=== PATIENT | male | born 1985 | race Caucasian/White ===

== ENCOUNTER 2018-07-17 19:40 | Emergency (ER) | payer OTHER ==
[~2018-07-17] VITALS: Ht 175.3 cm; Wt 87.1 kg
[2018-07-17 19:49] VITALS: BP 152/102
--- NOTE | 2018-07-17 21:20 | NUR ---
PT BIB SELF FOR CHEST TIGHTNESS X1 MONTH. PT REPORTS CHEST TIGHTNESS THAT RADIATES TO L JAW AND IS TINGLING. PT DENIES PAIN AT THIS TIME. PT REPORTS BEING UNDER STRESS WAITING FOR RESULTS OF EXAM. HEART RRR, CAP REFIL <3 SEC, NO EDEMA PRESENT, RADIAL PULSE EQUAL 2+. VSS. ER MD TO SEE PT. WILL CONTINUE TO MONITOR.
--- NOTE | 2018-07-17 21:48 | NUR ---
PT AMBULATED TO RESTROOM
[2018-07-17 22:54] VITALS: BP 129/88
--- NOTE | 2018-07-17 22:54 | NUR ---
Patient discharged with v/s stable. Written and verbal after care instructions given and explained. Patient alert, oriented and verbalized understanding of instructions. Ambulatory with steady gait. All questions addressed prior to discharge. ID band removed. Patient advised to follow up with PMD. Opportunity to ask questions provided and answered.
== END 2018-07-17 22:58 | disposition home or self-care (01) ==
LOC: MED 19:40
DX: F43.9 Reaction to severe stress, unspecified (principal)
CPT/HCPCS: 93005; 99283

== ENCOUNTER 2018-07-23 03:05 | Emergency (ER) | payer OTHER ==
[~2018-07-23] VITALS: Ht 172.7 cm; Wt 86.2 kg
[2018-07-23 03:10] VITALS: BP 149/99
--- NOTE | 2018-07-23 03:15 | NUR ---
EKG COMPLETED IN TRIAGE.
--- NOTE | 2018-07-23 03:16 | NUR ---
PT AMBULATED TO BED 10 WITH VSS AFTER EKG COMPLETED.
--- NOTE | 2018-07-23 03:20 | NUR ---
PATIENT PRESENTS TO ED WITH C/O INTERMITTENT CHEST PAIN PRESSURE X1.5 HRS AGO. PAIN STARTED AFTER EATING DINNER. NO CHEST PRESSURE AT THIS TIME. NOW C/O LEFT LOWER LEG PAIN. PT STATES PRESSURE LAST ONLY A FEW SECONDS AND USUALLY AFTER EATING. DENIES N/V/D; SKIN IS PINK/WARM/DRY; AAOX4 WITH EVEN AND STEADY GAIT; LUNGS CLEAR BL; HR EVEN AND REGULAR; PT DENIES ANY FEVER, CP, SOB, OR COUGH AT THIS TIME; PATIENT STATES PAIN OF 4/10 AT THIS TIME; VSS; PATIENT POSITIONED FOR COMFORT; HOB ELEVATED; BEDRAILS UP X2; BED DOWN. ER MD MADE AWARE OF PT STATUS.
[2018-07-23 03:45] VITALS: BP 137/85
--- NOTE | 2018-07-23 03:45 | NUR ---
Patient discharged with v/s stable. Written and verbal after care instructions given and explained. Patient verbalized understanding. Ambulatory with steady gait. All questions addressed prior to discharge. Advised to follow up with PMD.
== END 2018-07-23 03:45 | disposition home or self-care (01) ==
LOC: MED 03:05
DX: R07.89 Other chest pain (principal)
CPT/HCPCS: 93005; 99283